=== PATIENT | female | born 1965 | race African-American/Black ===

== ENCOUNTER 2016-07-19 15:54 | Emergency (ER) | payer OTHER ==
[~2016-07-19] VITALS: Ht 167.6 cm; Wt 80.0 kg
[~2016-07-19 15:54] MED LIST: Z.0.NO CURRENT MEDS
[2016-07-19 16:20] VITALS: BP 134/71; PULSE 70; RESP 14; TEMP 98; O2SAT 98
--- NOTE | 2016-07-19 18:12 | PD ---
HPI Chief Complaint: Allergic/Adverse Reaction Time Seen by Provider: 08:03 Travel History International Travel<30 days: No Contact w/Intl Traveler<30days: No Traveled to known affect area: No History of Present Illness HPI This is a 51-year-old female who presents for evaluation of skin irritation to the face and neck. She reports that last night she put [employer] skin cream on her face and anterior neck and she fell asleep with this cream on. She never use this cream in the past. She reports when she woke up her face and neck was irritated where the cream was on her skin. She washed off and took 2 tablets of Benadryl. She now presents for evaluation. She reports that she has mild irritation of the skin on her face and neck or the cream was and it feels tight. She denies any swelling of the lips, tongue, throat, shortness of breath, widespread rash or hives. She has no other complaints at this time. History Past Medical Histgory Tetanus Vaccination: > 5 Years Social History Alcohol Use: No Tobacco Use: No Allergies-Medications (Allergen,Severity, Reaction): Coded Allergies: No Known Allergies (Verified , 07/19/16) Reported Meds & Prescriptions Reported Meds & Active Scripts Active Reported No Current Meds (Miscellaneous Medication) Misc Review of Systems HENT: Positive: Other (denies swelling of the lips, tongue, throat, stridor, drooling.) Cardiovascular: No: Chest Pain or Discomfort Respiratory: No: Shortness of Breath, Wheezing Skin: Positive Rash, Positive Dryness, Positive Other (positive for irritation of the facial and neck skin.) Physical Exam Narrative GENERAL: Pleasant well-developed well-nourished female in no acute distress SKIN: Warm and dry. There is some redness and dryness of the skin on the cheeks and into her neck. There is no soft tissue swelling, induration, no hives. HEAD: Atraumatic. Normocephalic. EYES: Pupils equal and round. No scleral icterus. No injection or drainage. ENT: No nasal bleeding or discharge. Mucous membranes pink and moist. No swelling of lips, tongue, throat, uvula, no stridor or drooling. NECK: Trachea midline. No JVD. CARDIOVASCULAR: Regular rate and rhythm. No murmur appreciated. RESPIRATORY: No accessory muscle use. Clear to auscultation. Breath sounds equal bilaterally. Data Data Last Documented VS Vital Signs Date Time Temp Pulse Resp B/P Pulse Ox O2 Delivery O2 Flow Rate FiO2 07/19/16 18:01 Room Air 07/19/16 16:20 98.0 70 14 134/71 98 MDM Medical Screen Exam Complete: Yes Emergency Medical Condition: No Narrative Course 51-year-old female presents with irritation of the skin on the face, anterior neck where she fell asleep with a skin cream on her face and neck last night. Examination reveals evidence of an irritant contact dermatitis as opposed to an IgE mediated allergic contact dermatitis and she has no symptoms to suggest angioedema or hives or systemic illness. The patient was reassured. She plans on discontinuing this cream. I see no necessary treatment at this time besides avoidance of this cream. I did discuss signs and symptoms that would warrant returning to the emergency room. A medical screening exam was performed: At the time of evaluation the presenting medical condition was determined not to be of an emergent nature. The patient was given the option of receiving additional care, but declined. Patient was given options for additional community resources from which to obtain care. The Patient Has Been advised to seek medical attention for their presenting complaint. The patient has been advised to return to the ER at any time if an emergent condition develops. Primary Impression: Encounter for medical screening examination Vitor Brown Jul 19, 2016 18:12
== END 2016-07-19 18:20 | disposition left against medical advice (07) ==
LOC: NEPB 15:54
DX: L24.3 Irritant contact dermatitis due to cosmetics (principal)
CPT/HCPCS: 99281

== ENCOUNTER 2017-06-22 10:38 | Emergency (ER) | payer OTHER ==
[~2017-06-22] VITALS: Ht 167.6 cm; Wt 75.0 kg
[2017-06-22 10:45] VITALS: PULSE 90; RESP 18; TEMP 98.1; O2SAT 100
--- NOTE | 2017-06-22 10:57 | PD ---
HPI Chief Complaint: Allergic/Adverse Reaction Time Seen by Provider: 10:56 Travel History International Travel<30 days: No Contact w/Intl Traveler<30days: No Traveled to known affect area: No History of Present Illness HPI 52-year-old female presents the emergency department with generalized rash and itching since yesterday afternoon. Patient states she had an edible arrangement including some strawberries, bananas, grapes, and pineapple covered with chocolate. She states no previous food allergies in the past. Patient does have questionable allergies over the last several weeks for which her primary care physician has prescribed hydralazine. Patient states she has been taking Benadryl without significant relief. Patient denies difficulty swallowing, wheezing, or shortness of breath. She last took Benadryl last evening. She has no pain or fever. She has no known drug allergies. 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) Tubal Ligation: Yes Past Surgical History Abdominal Surgery: Yes (1 ) Section: Yes Social History Alcohol Use: No Tobacco Use: No Substance Use: Yes (MARIJUANA) Allergies-Medications (Allergen,Severity, Reaction): Coded Allergies: cyclobenzaprine (Verified Allergy, Unknown, 06/22/17) ibuprofen (Verified Allergy, Unknown, 06/22/17) pregabalin (Verified Allergy, Unknown, 06/22/17) Reported Meds & Prescriptions Reported Meds & Active Scripts Active Reported No Current Meds (Miscellaneous Medication) Misc Review of Systems Except as stated in HPI: all other systems reviewed are Neg General / Constitutional: No: Fever Eyes: No: Visual changes HENT: No: Headaches Cardiovascular: No: Chest Pain or Discomfort Respiratory: No: Shortness of Breath Gastrointestinal: No: Abdominal Pain Genitourinary: No: Dysuria Musculoskeletal: No: Pain Skin: Positive Rash, Positive Itching Neurologic: No: Weakness Psychiatric: No: Depression Endocrine: No: Polydipsia Hematologic/Lymphatic: No: Easy Bruising Physical Exam Narrative GENERAL: Patient appears anxious and in mild distress, but able to ambulate without difficulty and speaking in full sentences. SKIN: Warm and dry. Patient has generalized hive-like erythema to the face, and both upper arms and neck and chest. This is mild to moderate. She has no obvious swelling of the lips or tongue. HEAD: Atraumatic. Normocephalic. EYES: Pupils equal and round. No scleral icterus. No injection or drainage. ENT: No nasal bleeding or discharge. Mucous membranes pink and moist. TMs are clear. Pharynx is clear. Uvula is midline. Tongue is normal. Airways patent. NECK: Trachea midline. Supple and nontender. CARDIOVASCULAR: Regular rate and rhythm. RESPIRATORY: No accessory muscle use. Clear to auscultation. Breath sounds equal bilaterally. GASTROINTESTINAL: Abdomen soft, non-tender, nondistended. Hepatic and splenic margins not palpable. MUSCULOSKELETAL: Extremities without clubbing, cyanosis, or edema. No obvious deformities. NEUROLOGICAL: Awake and alert. No obvious cranial nerve deficits. Motor grossly within normal limits. Five out of 5 muscle strength in the arms and legs. Normal speech. PSYCHIATRIC: Appropriate mood and affect; insight and judgment normal. Data Data Last Documented VS Vital Signs Date Time Temp Pulse Resp B/P (MAP) Pulse Ox O2 Delivery O2 Flow Rate FiO2 06/22/17 11:17 100 Room Air 06/22/17 10:45 98.1 90 18 Orders Orders Basic Metabolic Panel (Bmp) (06/22/17 11:00) Complete Blood Count With Diff (06/22/17 11:00) Ecg Monitoring (06/22/17 11:00) Iv Access Insert/Monitor (06/22/17 11:00) Oximetry (06/22/17 11:00) Diphenhydramine Inj (Benadryl Inj) (06/22/17 11:00) Methylprednisolone So Succ Inj (Solumedr (06/22/17 11:00) Famotidine Inj (Pepcid Inj) (06/22/17 11:00) Sodium Chlor 0.9% 1000 Ml Inj (Ns 1000 M (06/22/17 11:00) Sodium Chloride 0.9% Flush (Ns Flush) (06/22/17 11:00) Labs Laboratory Tests Test 06/22/17 11:10 White Blood Count 6.6 TH/MM3 Red Blood Count 4.97 MIL/MM3 Hemoglobin 13.6 GM/DL Hematocrit 40.6 % Mean Corpuscular Volume 81.7 FL Mean Corpuscular Hemoglobin 27.4 PG Mean Corpuscular Hemoglobin Concent 33.5 % Red Cell Distribution Width 14.6 % Platelet Count 263 TH/MM3 Mean Platelet Volume 9.0 FL Neutrophils (%) (Auto) 58.6 % Lymphocytes (%) (Auto) 33.6 % Monocytes (%) (Auto) 6.4 % Eosinophils (%) (Auto) 1.0 % Basophils (%) (Auto) 0.4 % Neutrophils # (Auto) 3.9 TH/MM3 Lymphocytes # (Auto) 2.2 TH/MM3 Monocytes # (Auto) 0.4 TH/MM3 Eosinophils # (Auto) 0.1 TH/MM3 Basophils # (Auto) 0.0 TH/MM3 CBC Comment DIFF FINAL Differential Comment Blood Urea Nitrogen 14 MG/DL Creatinine 0.85 MG/DL Random Glucose 284 MG/DL Calcium Level 9.6 MG/DL Sodium Level 137 MEQ/L Potassium Level 3.9 MEQ/L Chloride Level 98 MEQ/L Carbon Dioxide Level 30.3 MEQ/L Anion Gap 9 MEQ/L Estimat Glomerular Filtration Rate 85 ML/MIN MDM Medical Decision Making Medical Screen Exam Complete: Yes Emergency Medical Condition: Yes Differential Diagnosis Hives. Allergic reaction. Food allergy. Narrative Course Patient is medically stable at time of exam. Labs ordered including CBC, and BMP. IV access is obtained, and patient is given 125 mg Solu-Medrol IV as well as 50 mg Benadryl IV, as well as 20 mg Pepcid IV. CBC is unremarkable. Chemistries are unremarkable except for a glucose of 284. Patient is reassessed and felt improved. Patient will be discharged on prednisone Dosepak as directed. Patient also given ranitidine 150 mg twice daily 2 weeks. Patient also to take Benadryl 25-50 mg p.o. every 4-6 hours as needed. Patient should follow-up with her primary care physician as discussed. Patient can return to emergency department with worsening allergic symptoms. Diagnosis Primary Impression: Allergic reaction Qualified Codes: T78.40XA - Allergy, unspecified, initial encounter Referrals: Primary Care Physician Patient Instructions: General Instructions, Urticaria (ED) Additional Instructions: CBC is unremarkable. Chemistries are unremarkable except for a glucose of 284. Patient is reassessed and felt improved. Patient will be discharged on prednisone Dosepak as directed. Patient also given ranitidine 150 mg twice daily 2 weeks. Patient also to take Benadryl 25-50 mg p.o. every 4-6 hours as needed. Patient should follow-up with her primary care physician as discussed. Patient can return to emergency department with worsening allergic symptoms. Med/Other Pt SpecificInfo: Prescription(s) given Disposition: 01 DISCHARGE HOME Condition: Stable Blaine Stokes Jun 22, 2017 10:57
[2017-06-22] MEDS ORDERED: SODIUM CHLOR 0.9% 1000 ML INJ 1,000 ML IV SCH (11:00)
[2017-06-22] MEDS ORDERED: SODIUM CHLORIDE 0.9% FLUSH 10 ML FLUSH IV FLUSH PRN (11:00)
[2017-06-22] MEDS ORDERED: FAMOTIDINE 20 MG/2 ML VIAL IV PUSH ONE (11:00)
[2017-06-22] MEDS ORDERED: diphenhydrAMINE HCL 50 MG/ML VIAL IVP ONE (11:00)
[2017-06-22] MEDS ORDERED: methylPREDNISolone SOD SUCC 125 MG/2 ML VIAL IM ONE (11:00)
[2017-06-22 11:17] VITALS: O2SAT 100
[2017-06-22 11:59] LABS: AUTOMATED NEUTROPHIL # 3.9 TH/MM3 (1.8-7.7); BASOPHIL % 0.4 % (0.0-2.0); EOSINOPHIL # 0.1 TH/MM3 (0-0.4); HEMATOCRIT 40.6 % (35.0-46.0); HEMOGLOBIN 13.6 GM/DL (11.6-15.3); LYMPH % 33.6 % (9.0-44.0); LYMPHOCYTE # 2.2 TH/MM3 (1.0-4.8); MEAN CELL VOLUME 81.7 FL (80.0-100.0); MEAN CORPUSCULAR HEMOGLOBIN 27.4 PG (27.0-34.0); MEAN CORPUSCULAR HGB CONC 33.5 % (32.0-36.0); MONO % 6.4 % (0.0-8.0); MONOCYTE # 0.4 TH/MM3 (0-0.9); NEUT % 58.6 % (16.0-70.0); PLATELET COUNT 263 TH/MM3 (150-450); RED BLOOD COUNT 4.97 MIL/MM3 (4.00-5.30); RED CELL DISTRIBUTION WIDTH 14.6 % (11.6-17.2); WHITE BLOOD COUNT 6.6 TH/MM3 (4.0-11.0)
[2017-06-22 12:14] LABS: BICARBONATE 30.3 MEQ/L (21.0-32.0); CALCIUM 9.6 MG/DL (8.5-10.1); CREATININE 0.85 MG/DL (0.50-1.00)
[2017-06-22] MEDS ORDERED: RANI1TAB7 PO (12:35)
[2017-06-22] MEDS ORDERED: PRED10PA PO (12:35)
== END 2017-06-22 13:11 | disposition home or self-care (01) ==
LOC: NEPD 10:38
DX: T78.40XA Allergy, unspecified, initial encounter (principal); F12.90 Cannabis use, unspecified, uncomplicated
CPT/HCPCS: 80048; 85025; 96361; 96372; 96374; 96375; 99284; J1200; J2930; J7030

== ENCOUNTER 2017-08-05 07:36 | Emergency (ER) | payer SELFPAY ==
[~2017-08-05] VITALS: Ht 167.6 cm; Wt 68.0 kg
[~2017-08-05 07:36] MED LIST changes: +PRED10PA PO; +RANI1TAB7 PO
[2017-08-05 07:45] VITALS: BP 138/74; PULSE 87; RESP 17; TEMP 98.1; O2SAT 100
[2017-08-05] MEDS ORDERED: SODIUM CHLOR 0.9% 1000 ML INJ 1,000 ML IV ONE (08:45)
[2017-08-05] MEDS ORDERED: ACETAMINOPHEN 325 MG TAB PO ONE (08:45)
[2017-08-05 08:52] LABS: AUTOMATED NEUTROPHIL # 4.6 TH/MM3 (1.8-7.7); BASOPHIL % 0.4 % (0.0-2.0); EOSINOPHIL # 0.1 TH/MM3 (0-0.4); HEMATOCRIT 43.5 % (35.0-46.0); HEMOGLOBIN 14.2 GM/DL (11.6-15.3); LYMPH % 22.3 % (9.0-44.0); LYMPHOCYTE # 1.5 TH/MM3 (1.0-4.8); MEAN CELL VOLUME 82.7 FL (80.0-100.0); MEAN CORPUSCULAR HGB CONC 32.7 % (32.0-36.0); MEAN PLATELET VOLUME 9.7 FL (7.0-11.0); MONO % 6.8 % (0.0-8.0); MONOCYTE # 0.4 TH/MM3 (0-0.9); NEUT % 69.5 % (16.0-70.0); PLATELET COUNT 227 TH/MM3 (150-450); RED BLOOD COUNT 5.26 MIL/MM3 (4.00-5.30); RED CELL DISTRIBUTION WIDTH 14.3 % (11.6-17.2); WHITE BLOOD COUNT 6.6 TH/MM3 (4.0-11.0)
[2017-08-05 09:13] LABS: ALT (GPT) 23 U/L (10-53)
[2017-08-05 09:16] LABS: ALBUMIN 3.7 GM/DL (3.4-5.0); ALKALINE PHOSPHATASE 124 U/L (45-117); AST (GOT) 36 U/L (15-37); BICARBONATE 27.2 MEQ/L (21.0-32.0); BLOOD UREA NITROGEN 12 MG/DL (7-18); CALCIUM 9.7 MG/DL (8.5-10.1); CHLORIDE 102 MEQ/L (98-107); CREATININE 0.95 MG/DL (0.50-1.00); GLOMERULAR FILTRATION RATE 74 ML/MIN (>89); GLUCOSE,RANDOM 289 MG/DL (74-106); SODIUM (NA) 138 MEQ/L (136-145); TOTAL BILIRUBIN ADULT 0.6 MG/DL (0.2-1.0); TOTAL PROTEIN 7.6 GM/DL (6.4-8.2)
[2017-08-05 09:53] VITALS: BP 117/62; PULSE 78; RESP 15; TEMP 98.3; O2SAT 100
--- NOTE | 2017-08-05 10:12 | PD ---
HPI Chief Complaint: Headache Time Seen by Provider: 08:23 Travel History International Travel<30 days: No Contact w/Intl Traveler<30days: No Traveled to known affect area: No History of Present Illness HPI Patient is a 52-year-old female who comes in complaining of dry skin and tightness of the skin on her face. She says this is been going on for the past few days. She has been here multiple times due to what she calls an allergic reaction. She took Benadryl last night to help with itching, and says that that has improved. She complains of a slight headache on the left. She says that her doctor took her off all of her medications, including her diabetic medication. She is tried putting Vaseline on her skin to help with the dryness. She also says "my doctor is trying to give me a skin graft." When asked about this, she is unable to really explain. She denies any difficulty breathing. Severity is mild. 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) Tetanus Vaccination: > 5 Years Influenza Vaccination: No ?: Not Menopausal: Yes : 1 Tubal Ligation: Yes Past Surgical History Abdominal Surgery: Yes (1 ) Section: Yes Social History Alcohol Use: No Tobacco Use: No Substance Use: No Allergies-Medications (Allergen,Severity, Reaction): Coded Allergies: cyclobenzaprine (Verified Allergy, Unknown, HIVES, 08/05/17) ibuprofen (Verified Allergy, Unknown, HIVES, 08/05/17) pregabalin (Verified Allergy, Unknown, HIVES, 08/05/17) metformin (Verified Adverse Reaction, Unknown, Nausea/Vomiting, 08/05/17) Reported Meds & Prescriptions Reported Meds & Active Scripts Active No Active Prescriptions or Reported Medications Review of Systems Except as stated in HPI: all other systems reviewed are Neg General / Constitutional: No: Fever, Chills HENT: Positive: Headaches, No: Lightheadedness Cardiovascular: No: Chest Pain or Discomfort Respiratory: No: Shortness of Breath Gastrointestinal: No: Nausea, Vomiting Skin: Positive Rash, Positive Itching Neurologic: No: Weakness, Dizziness Physical Exam Narrative GENERAL: Awake and alert, no acute distress. SKIN: Focused skin assessment warm/dry. No rashes or signs of infection. HEAD: Atraumatic. Normocephalic. EYES: Pupils equal and round. No scleral icterus. ENT: Mucous membranes pink and moist. No throat swelling, uvula is midline. NECK: Trachea midline. No JVD. CARDIOVASCULAR: Regular rate and rhythm. No murmur appreciated. RESPIRATORY: No accessory muscle use. Clear to auscultation. Breath sounds equal bilaterally. MUSCULOSKELETAL: No obvious deformities. No clubbing. No cyanosis. No edema. NEUROLOGICAL: Awake and alert. No obvious cranial nerve deficits. Motor grossly within normal limits. Normal speech. PSYCHIATRIC: Appropriate mood and affect; insight and judgment normal. Data Data Last Documented VS Vital Signs Date Time Temp Pulse Resp B/P (MAP) Pulse Ox O2 Delivery O2 Flow Rate FiO2 08/05/17 09:53 98.3 78 15 117/62 (80) 100 Room Air Orders Orders Iv Access Insert/Monitor (08/05/17 08:34) Complete Blood Count With Diff (08/05/17 08:34) Comprehensive Metabolic Panel (08/05/17 08:34) Sodium Chlor 0.9% 1000 Ml Inj (Ns 1000 M (08/05/17 08:45) Acetaminophen (Tylenol) (08/05/17 08:45) Labs Laboratory Tests Test 08/05/17 08:25 White Blood Count 6.6 TH/MM3 Red Blood Count 5.26 MIL/MM3 Hemoglobin 14.2 GM/DL Hematocrit 43.5 % Mean Corpuscular Volume 82.7 FL Mean Corpuscular Hemoglobin 27.0 PG Mean Corpuscular Hemoglobin Concent 32.7 % Red Cell Distribution Width 14.3 % Platelet Count 227 TH/MM3 Mean Platelet Volume 9.7 FL Neutrophils (%) (Auto) 69.5 % Lymphocytes (%) (Auto) 22.3 % Monocytes (%) (Auto) 6.8 % Eosinophils (%) (Auto) 1.0 % Basophils (%) (Auto) 0.4 % Neutrophils # (Auto) 4.6 TH/MM3 Lymphocytes # (Auto) 1.5 TH/MM3 Monocytes # (Auto) 0.4 TH/MM3 Eosinophils # (Auto) 0.1 TH/MM3 Basophils # (Auto) 0.0 TH/MM3 CBC Comment DIFF FINAL Differential Comment Blood Urea Nitrogen 12 MG/DL Creatinine 0.95 MG/DL Random Glucose 289 MG/DL Total Protein 7.6 GM/DL Albumin 3.7 GM/DL Calcium Level 9.7 MG/DL Alkaline Phosphatase 124 U/L Aspartate Amino Transf (AST/SGOT) 36 U/L Alanine Aminotransferase (ALT/SGPT) 23 U/L Total Bilirubin 0.6 MG/DL Sodium Level 138 MEQ/L Potassium Level 4.6 MEQ/L Chloride Level 102 MEQ/L Carbon Dioxide Level 27.2 MEQ/L Anion Gap 9 MEQ/L Estimat Glomerular Filtration Rate 74 ML/MIN [facility] Medical Decision Making Medical Screen Exam Complete: Yes Emergency Medical Condition: Yes Medical Record Reviewed: Yes Differential Diagnosis Allergic reaction versus dry skin versus electrolyte abnormality Narrative Course Patient is a 52-year-old female who comes in complaining of an allergic reaction. There is no rash on her skin. IV established, labs sent. Labs show an elevated blood sugar, no other acute abnormalities. Patient given IV fluids. She is advised follow-up with her doctor. Advised to take Benadryl as needed for itching. Advised return to the ED as needed for any worsening symptoms. Diagnosis Primary Impression: Itching Patient Instructions: General Instructions, Itchy Skin (ED) Additional Instructions: Follow-up with your doctor. Take Benadryl as needed for itching. Return to the ED as needed for any worsening symptoms. Scripts No Active Prescriptions or Reported Meds Disposition: 01 DISCHARGE HOME Condition: Stable Aster Weeks MD Aug 05, 2017 10:12
[2017-08-05 10:25] VITALS: BP 124/81; TEMP 97.8
== END 2017-08-05 10:25 | disposition home or self-care (01) ==
LOC: NEPE 07:36
DX: L29.9 Pruritus, unspecified (principal)
CPT/HCPCS: 80053; 85025; 96360; 99284; J7030